=== PATIENT | male | born 1975 | race African-American/Black ===

== ENCOUNTER 2020-08-28 02:34 | Emergency (ER) | payer MEDICARE, OTHER ==
[~2020-08-28] VITALS: Ht 182.9 cm; Wt 90.7 kg
--- NOTE | 2020-08-28 02:35 | NUR ---
PT BIBEMS C/O "I WOKE UP NOT FEELING RIGHT". PT APPEARS TO BE ANXIOUS.+ NAUSEA. (+) ETOH. PT AAOX4, VSS, RESPIRATIONS EVEN AND UNLABORED ON RA W/ AND NOTED. PT CONNECTED TO THE VICE PRESIDENT QUALITY AND POX
--- NOTE | 2020-08-28 02:54 | NUR ---
PHLEBTOMIST AT BEDSIDE
[2020-08-28 03:02] LABS: BASOPHILS % (AUTO) 0.6 % (0.0-2.0); EOSINOPHILS % (AUTO) 0.2 % (0.0-6.0); HEMATOCRIT 45 % (39-51); LYMPHOCYTES # (AUTO) 2.6 /CMM (0.8-4.8); MEAN CORPUSCULAR HGB CONC 33 g/dl (31.0-36.0); MEAN CORPUSCULAR VOLUME 83 fL (80-96); MONOCYTES # (AUTO) 0.4 /CMM (0.1-1.30); MONOCYTES % (AUTO) 8.6 % (2.0-12.0); NEUTROPHILS # (AUTO) 1.5 /CMM (1.8-8.9); NEUTROPHILS % (AUTO) 32.6 % (43.0-81.0); PLATELET COUNT (AUTO) 202 /CMM (150-450); WHITE BLOOD COUNT (AUTO) 4.5 K/uL (4.3-11.0)
--- NOTE | 2020-08-28 03:08 | NUR ---
XRAY AT BEDSIDE
[2020-08-28 03:13] LABS: CALCIUM, SERUM 8.7 mg/dL (8.5-10.1); CREATININE 1.1 mg/dL (0.6-1.3); POTASSIUM 3.9 mmol/L (3.5-5.1)
[2020-08-28] MEDS ORDERED: IV NS 0.9% 1,000 ML IV PRN ×3 (03:30→04:30)
--- NOTE | 2020-08-28 03:30 | NUR ---
ADDENDUM: Intravenous End Time Documentation: 1. Normal saline 1 liter (IV-WO) : start time: 0330 am ; end time: 0411 am : IV site: LAC # 18 Port # 1 2. Normal saline 1 liter (IV-WO) : start time: 0330 am ; end time: 0411 am : IV site: LAC # 18 Port # 2
[2020-08-28] MEDS ORDERED: ONDANSETRON HCL/PF 4 MG/2 ML VIAL IVP PRN (04:00)
--- NOTE | 2020-08-28 04:00 | NUR ---
PT STATES "I WANTED TO GO HOME". GRISELDA JAEGER NP MADE AWARE.
--- NOTE | 2020-08-28 04:11 | NUR ---
PT AAOX4, AMBULATORY W/ STEADY GAIT. PT DISCHARGED TO HOME IN STABLE CONDITION. INSTRUCTIONS WERE GIVEN. PT REFUSED TO SIGN ACI.
[2020-08-28 04:23] VITALS: BP 147/81
[2020-08-28] MEDS ORDERED: Thiamine 100 MG in IV D5W 50 ML IV ONE (07:00)
[2020-08-28] MEDS ORDERED: PANTOPRAZOLE 40 MG TABLET.DR PO SCH (07:30)
== END 2020-08-28 04:23 | disposition home or self-care (01) ==
LOC: ER 02:34
DX: F10.129 Alcohol abuse with intoxication, unspecified (principal); R11.0 Nausea; R06.02 Shortness of breath; Y90.8 Blood alcohol level of 240 mg/100 ml or more
CPT/HCPCS: 36415; 71045; 80048; 80307; 85025; 96360; 99284; J7030; J7060; J3411